=== PATIENT | male | born 1990 | race Caucasian/White ===

== ENCOUNTER 2017-09-22 03:34 | Emergency (ER) | payer OTHER, SELFPAY ==
[2017-09-22] MEDS ORDERED: ALBUTEROL 2.5 MG/3 ML NEB SOL ONE (05:01)
[2017-09-22] MEDS ORDERED: ASPIRIN EC 81 MG TAB PO ONE (05:01)
[2017-09-22] MEDS ORDERED: NA CHLORIDE 0.9% 1,000 ML ONE (05:01)
[2017-09-22] MEDS ORDERED: KETOROLAC 30 MG/ML INJ ONE (05:01)
[2017-09-22 05:20] LABS: Absolute Monocytes 2.4 K/uL (0.1-1.3); Basophils % 0.2 % (0-1.3); Monocytes % 10.5 % (3.3-12.3)
[2017-09-22 05:27] LABS: Absolute Neutrophil 18.8 K/uL (1.8-8.0); Hematocrit 43.6 % (39.6-49.0); Lymphocytes % 8.5 % (15.3-44.8); MCH 28.9 pg (27.0-35.0); MCV 83.9 fL (80-100); MPV 7.8 fL (7.6-11.3); RBC Red Blood Cell Count 5.19 M/uL (4.33-5.43)
[2017-09-22 05:31] LABS: Protime INR 1.21
[2017-09-22 05:44] LABS: Albumin 4.2 g/dL (3.2-5.5); Bilirubin Direct 0.2 mg/dL (0-0.2); Bilirubin Total 0.9 mg/dL (0.3-1.2); Magnesium 1.8 mg/dL (1.8-2.5); Protein, Total 7.2 g/dL (6.0-8.3)
[2017-09-22 05:49] LABS: CKMB Creatine Kinase MB 0.8 ng/ml (0.3-4.0)
[2017-09-22] MEDS ORDERED: Levofloxacin 750mg IV 750 MG/150 ML BAG IV ONE (06:00)
--- NOTE | 2017-09-22 06:38 | EKG ---
Test Date: 2017-09-22 Test Time: 04:51:58 Director Occupational: MEASUREMENT RESULTS: Intervals: Rate: 104 MI: 128 QRSD: 88 QT: 336 QTc: 441 [place]: P: 56 MI: 128 QRS: 59 T: 20 INTERPRETIVE STATEMENTS: Sinus tachycardia Otherwise normal ECG No previous ECG available for comparison Electronically Signed On 09-22-17 06:37:51 CDT by Reinaldo Faria
[2017-09-22 06:40] LABS: Blood Morphology Comment NOT SEEN (NOT SEEN); Platelet Estimate ADEQ
[2017-09-22 06:55] LABS: Urine Blood NEGATIVE (NEG); Urine Glucose NEGATIVE (NEG); Urine Protein NEGATIVE (NEG)
--- NOTE | 2017-09-22 07:22 | RAD REPORT ---
EXAM DESCRIPTION: CT - Chest For Pe Angio - 09/22/2017 7:00 am CLINICAL HISTORY: Chest pain. Chest pain;Cough COMPARISON: Chest Single View dated 09/22/2017 TECHNIQUE: CT angiogram of the pulmonary arteries was performed with MIP. All CT scans are performed using dose optimization technique as appropriate and may include automated exposure control or mA/KV adjustment according to patient size. FINDINGS: No evidence of pulmonary thromboembolism. No acute aortic finding demonstrated. Moderate subsegmental atelectasis is seen in both lung bases posteriorly. No significant pericardial or pleural fluid. No concerning bony finding. Fatty liver. IMPRESSION: No evidence of pulmonary thromboembolism. Moderate subsegmental atelectasis in both lung bases.
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
--- NOTE | 2017-09-22 07:38 | EDPHYS ---
Physician Documentation [facility] Name: Semaj Mccormick III Age: 27 yrs Sex: Male : 1990 Arrival Date: 09/22/2017 Time: 03:37 Bed 6 Private MD: ED Physician Alejandro Quinones HPI: 09/22 04:40 This 27 yrs old Male presents to ER via Ambulatory with complaints of Chest mike Tightness, Chest Pain. 04:40 The patient or guardian reports chest pain that is located primarily in the substernal mike area, anterior chest wall, bilaterally. The pain does not radiate. Associated signs and symptoms: The patient has no apparent associated signs or symptoms. The chest pain is described as squeezing. Duration: The patient or guardian reports multiple episodes, that are intermittent. Modifying factors: The symptoms are alleviated by nothing. the symptoms are aggravated by deep breath. Severity of pain: At its worst the pain was mild in the emergency department the pain is unchanged. The patient has not experienced similar symptoms in the past. Historical: - Allergies: 03:53 No Known Allergies; rv - Home Meds: 03:53 None [Active]; rv - PMHx: 03:53 None; rv - PSHx: 03:53 laser eye surgery; rv - Immunization history:: Adult Immunizations up to date. - Social history:: Smoking status: unknown. - Ebola Screening: : Patient negative for fever greater than or equal to 101.5 degrees Fahrenheit, and additional compatible Ebola Virus Disease symptoms Patient denies exposure to infectious person Patient denies travel to an Ebola-affected area in the 21 days before illness onset. - Family history:: not pertinent. ROS: 04:40 Constitutional: Negative for fever, chills, and weight loss, Eyes: Negative for injury, mike pain, redness, and discharge, ENT: Negative for injury, pain, and discharge, Neck: Negative for injury, pain, and swelling, Abdomen/GI: Negative for abdominal pain, nausea, vomiting, diarrhea, and constipation, Back: Negative for injury and pain, : Negative for injury, bleeding, discharge, and swelling, MS/Extremity: Negative for injury and deformity, Skin: Negative for injury, rash, and discoloration, Neuro: Negative for headache, weakness, numbness, tingling, and seizure, Psych: Negative for depression, anxiety, suicide ideation, homicidal ideation, and hallucinations, Allergy/Immunology: Negative for hives, rash, and allergies, Endocrine: Negative for neck swelling, polydipsia, polyuria, polyphagia, and marked weight changes, Hematologic/Lymphatic: Negative for swollen nodes, abnormal bleeding, and unusual bruising. 04:40 Cardiovascular: Positive for chest pain. 04:40 Respiratory: Positive for cough, dyspnea on exertion, shortness of breath, at rest. Exam: 04:40 Constitutional: This is a well developed, well nourished patient who is awake, alert, mike and in no acute distress. Head/Face: Normocephalic, atraumatic. Eyes: Pupils equal round and reactive to light, extra-ocular motions intact. Lids and lashes normal. Conjunctiva and sclera are non-icteric and not injected. Cornea within normal limits. Periorbital areas with no swelling, redness, or edema. ENT: Nares patent. No nasal discharge, no septal abnormalities noted. Tympanic membranes are normal and external auditory canals are clear. Oropharynx with no redness, swelling, or masses, exudates, or evidence of obstruction, uvula midline. Mucous membranes moist. Neck: Trachea midline, no thyromegaly or masses palpated, and no cervical lymphadenopathy. Supple, full range of motion without nuchal rigidity, or vertebral point tenderness. No Meningismus. Chest/axilla: Normal chest wall appearance and motion. Nontender with no deformity. No lesions are appreciated. Cardiovascular: Regular rate and rhythm with a normal S1 and S2. No gallops, murmurs, or rubs. Normal PMI, no JVD. No pulse deficits. Respiratory: Lungs have equal breath sounds bilaterally, clear to auscultation and percussion. No rales, rhonchi or wheezes noted. No increased work of breathing, no retractions or nasal flaring. Abdomen/GI: Soft, non-tender, with normal bowel sounds. No distension or tympany. No guarding or rebound. No evidence of tenderness throughout. Back: No spinal tenderness. No costovertebral tenderness. Full range of motion. Male : Normal genitalia with no discharge or lesions. Skin: Warm, dry with normal turgor. Normal color with no rashes, no lesions, and no evidence of cellulitis. MS/ Extremity: Pulses equal, no cyanosis. Neurovascular intact. Full, normal range of motion. Neuro: Awake and alert, GCS 15, oriented to person, place, time, and situation. Cranial nerves II-XII grossly intact. Motor strength 5/5 in all extremities. Sensory grossly intact. Cerebellar exam normal. Normal gait. Psych: Awake, alert, with orientation to person, place and time. Behavior, mood, and affect are within normal limits. 04:43 Musculoskeletal/extremity: DVT Exam: No signs of deep vein thrombosis. no pain, no mike swelling, no tenderness, negative Homans' sign noted on exam, no appreciated bluish discoloration, no erythema, no increased warmth. Vital Signs: 03:53 BP 131 / 80; Pulse 112; Resp 99; Temp 99; Pulse Ox 98% on R/A; Weight 111.13 kg (R); rv 05:32 BP 127 / 80; Pulse 113; Resp 16; Pulse Ox 99% on R/A; rv 06:30 BP 121 / 73; Pulse 98; Resp 16; Pulse Ox 93% on R/A; rv 07:30 BP 126 / 78; Pulse 94; Resp 20; Pulse Ox 99% on R/A; ph 08:44 BP 129 / 72; Pulse 94; Resp 18; Temp 98.0; Pulse Ox 99% on R/A; ph MDM: 03:59 Patient medically screened. [facility] 04:43 Data reviewed: vital signs, nurses notes, lab test result(s), EKG, radiologic studies, [facility] plain films. 09/22 04:40 Order name: Basic Metabolic Panel; Complete Time: 06:35 [facility] 09/22 04:40 Order name: BNP; Complete Time: 06:35 [facility] 09/22 04:40 Order name: CBC with Diff; Complete Time: 07:35 [facility] 09/22 04:40 Order name: Ckmb; Complete Time: 06:35 [facility] 09/22 04:40 Order name: CPK; Complete Time: 06:35 [facility] 09/22 04:40 Order name: LFT's; Complete Time: 06:35 [facility] 09/22 04:40 Order name: Magnesium; Complete Time: 06:35 [facility] 09/22 04:40 Order name: PT-INR; Complete Time: 05:46 [facility] 09/22 04:40 Order name: Ptt, Activated; Complete Time: 05:46 [facility] 09/22 04:40 Order name: Troponin (emerg Dept Use Only); Complete Time: 05:46 [facility] 09/22 04:40 Order name: D-Dimer; Complete Time: 05:46 [facility] 09/22 05:46 Order name: Manual Differential; Complete Time: 07:35 EDMS 09/22 05:47 Order name: Blood Culture Adult (2) [facility] 09/22 06:52 Order name: Urine Dipstick--Ancillary (enter results); Complete Time: 07:35 eb 09/22 04:40 Order name: XRAY Chest (1 view) [facility] 09/22 04:40 Order name: EKG; Complete Time: 04:41 [facility] 09/22 04:40 Order name: Cardiac monitoring; Complete Time: 05:31 [facility] 09/22 04:40 Order name: EKG - Nurse/Tech; Complete Time: 04:55 [facility] 09/22 04:40 Order name: IV Saline Lock; Complete Time: 05:31 [facility] 09/22 04:40 Order name: Labs collected and sent; Complete Time: 05:31 [facility] 09/22 04:40 Order name: O2 Per Protocol; Complete Time: 05:31 [facility] 09/22 04:40 Order name: O2 Sat Monitoring; Complete Time: 05:31 [facility] 09/22 04:40 Order name: Urine Dipstick-Ancillary (obtain specimen); Complete Time: 06:52 [facility] 09/22 05:47 Order name: CT Chest For PE Angio; Complete Time: 07:35 [facility] 09/22 07:35 Order name: INCENTIVE SPIROMETRY mike Administered Medications: 05:00 Drug: NS 0.9% 1000 ml Route: IV; Rate: 1 bolus; Site: right antecubital; rv 05:39 Follow up: Response: No adverse reaction rv 08:40 Follow up: Response: No adverse reaction; IV Status: Completed infusion ph 05:00 Drug: Albuterol - atroVENT (3:1) (2.5 mg - 0.5 mg) 3 ml Route: Nebulizer; rv 05:39 Follow up: Response: No adverse reaction rv 05:00 Drug: TORadol 30 mg Route: IVP; Site: right antecubital; rv 05:39 Follow up: Response: No adverse reaction; Pain is decreased rv 05:00 Drug: Aspirin 81 mg Route: PO; rv 05:39 Follow up: Response: No adverse reaction rv 06:27 Drug: levofloxacin 750 mg Volume: 150 ml; Route: IVPB; Infused Over: 90 mins; Site: rv right antecubital; 08:40 Follow up: Response: No adverse reaction; IV Status: Completed infusion ph Disposition: 09/22/17 07:38 Discharged to Home. Impression: Chest pain on breathing, Elevated white blood cell count, Dyspnea. - Condition is Stable. - Discharge Instructions: Nonspecific Chest Pain, Chest Wall Pain, Pleurisy, Nonspecific Chest Pain, [id number], Aspirin and Your Heart, Pleurisy, [id number], Pleurodynia. - Prescriptions for Ibuprofen 600 mg Oral Tablet - take 1 tablet by ORAL route every 8 hours As needed take with food; 21 tablet. Levaquin 750 mg Oral Tablet - take 1 tablet by ORAL route once daily for 7 days; 6 tablet. Pepcid 20 mg Oral Tablet - take 1 tablet by ORAL route every 12 hours for 10 days; 20 tablet. Albuterol Sulfate 90 mcg/actuation - inhale 1-2 puff by INHALATION route every 4-6 hours; 1 Inhaler. - Medication Reconciliation Form, Thank You Letter, Antibiotic Education, Prescription Opioid Use, Work release form form. - Follow up: Private Physician; When: 2 - 3 days; Reason: Recheck today's complaints, Continuance of care, Re-evaluation by your physician. Follow up: Bennett Gallegos; When: 2 - 3 days; Reason: Recheck today's complaints, Continuance of care, Re-evaluation by your physician. - Problem is new. - Symptoms have improved. Signatures: Dispatcher [employer] EDMS Alejandro Quinones MD MD cha Hall, Patricia, RN RN Dat Goldman RN RN rv Corrections: (The following items were deleted from the chart) 08:41 07:38 09/22/2017 07:38 Discharged to Home. Impression: Chest pain on breathing; ph Elevated white blood cell count; Dyspnea. Condition is Stable. Discharge Instructions: Nonspecific Chest Pain, Chest Wall Pain, Nonspecific Chest Pain, Papu-xb-Axol, Aspirin and Your Heart, Pleurodynia. Prescriptions for Ibuprofen 600 mg Oral Tablet - take 1 tablet by ORAL route every 8 hours As needed take with food; 21 tablet, Levaquin 750 mg Oral Tablet - take 1 tablet by ORAL route once daily for 7 days; 6 tablet, Pepcid 20 mg Oral Tablet - take 1 tablet by ORAL route every 12 hours for 10 days; 20 tablet. and Forms are Medication Reconciliation Form, Thank You Letter, Antibiotic Education, Prescription Opioid Use. Follow up: Private Physician; When: 2 - 3 days; Reason: Recheck today's complaints, Continuance of care, Re-evaluation by your physician. Follow up: Bennett Gallegos; When: 2 - 3 days; Reason: Recheck today's complaints, Continuance of care, Re-evaluation by your physician. Problem is new. Symptoms have improved. mike
--- NOTE | 2017-09-22 11:30 | RAD REPORT ---
EXAM DESCRIPTION: RAD - Chest Single View - 09/22/2017 5:01 am CLINICAL HISTORY: Cough;Chest pain Chest pain. COMPARISON: Chest For Pe Angio dated 09/22/2017 FINDINGS: Portable technique limits examination quality. Linear subsegmental atelectasis is present in both lung bases, greater on the left. The lungs are oth erwise clear. The heart is normal in size. No displaced fractures. IMPRESSION: Bibasilar subsegmental atelectasis.
== END 2017-09-22 08:41 | disposition home or self-care (01) ==
LOC: ER 03:34
DX: D72.829 Elevated white blood cell count, unspecified (principal); R06.00 Dyspnea, unspecified
CPT/HCPCS: 36415; 71045; 71275; 80048; 80076; 81003; 82550; 82553; 83735; 83880; 84484; 85025; 85379; 85610; 85730; 87040; 93005; 94640; 96361; 96365; 96366; 96375; 99285; J7030; Q9967

== ENCOUNTER 2018-09-16 10:49 | Emergency (ER) | payer SELFPAY ==
[2018-09-16] MEDS ORDERED: IBUPROFEN 400 MG TAB ONE (11:25)
--- NOTE | 2018-09-16 12:22 | EDPHYS ---
Physician Documentation [facility] Name: Semaj Mccormick III Age: 28 yrs Sex: Male : 1990 Arrival Date: 09/16/2018 Time: 10:55 Bed 13 Private MD: ED Physician Alejandro Quinones HPI: 09/16 11:05 This 28 yrs old Male presents to ER via Ambulatory with complaints of Sore jmm Throat. 11:05 The patient presents with sore throat. Onset: The symptoms/episode began/occurred jmm gradually, 1 day(s) ago. Associated signs and symptoms: Pertinent positives: chills, fever, Pertinent negatives cough, shortness of breath, vomiting. Patient complains of sore throat, denies cough, denies vomiting, denies shortness of breath. Historical: - Allergies: 11:00 No Known Allergies; hj - Home Meds: 11:00 None [Active]; hj - PMHx: 11:00 None; hj - PSHx: 11:00 None; hj - Immunization history:: Adult Immunizations up to date. - Social history:: Smoking status: Patient/guardian denies using tobacco, Patient uses alcohol. - Ebola Screening: : Patient negative for fever greater than or equal to 101.5 degrees Fahrenheit, and additional compatible Ebola Virus Disease symptoms Patient denies exposure to infectious person Patient denies travel to an Ebola-affected area in the 21 days before illness onset. ROS: 11:05 Cardiovascular: Negative for chest pain, palpitations, and edema, Respiratory: Negative jmm for shortness of breath, cough, wheezing, and pleuritic chest pain, Abdomen/GI: Negative for abdominal pain, nausea, vomiting, diarrhea, and constipation, Neuro: Negative for headache, weakness, numbness, tingling, and seizure. 11:05 Constitutional: Positive for chills, fever. 11:05 ENT: Positive for sore throat. 11:05 All other systems are negative. Exam: 11:05 Constitutional: This is a well developed, well nourished patient who is awake, alert, jmm and in no acute distress. Head/Face: atraumatic. Eyes: EOMI, no conjunctival erythema appreciated 11:05 Chest/axilla: Normal chest wall appearance and motion. 11:05 Abdomen/GI: Non distended, soft Back: Normal ROM Skin: General appearance color normal MS/ Extremity: Moves all extremities, no obvious deformities appreciated, no edema noted to the lower extremities Neuro: Awake and alert, normal gait Psych: Behavior is normal, Mood is normal, Patient is cooperative and pleasant 11:05 ENT: Posterior pharynx: Airway: normal, Uvula: midline, erythema, that is moderate, exudate, that is moderate. 11:05 Cardiovascular: Rate: tachycardic, Rhythm: regular. 11:05 Respiratory: the patient does not display signs of respiratory distress, Respirations: normal, Breath sounds: are clear throughout. Vital Signs: 11:00 BP 134 / 84; Pulse 135; Resp 16; Temp 99.8(O); Pulse Ox 96% on R/A; Weight 111.13 kg; hj Height 6 ft. 2 in. (187.96 cm); Pain 4/10; 12:17 BP 112 / 72; Pulse 116; Resp 18; Temp 99.0(O); Pulse Ox 95% on R/A; Pain 4/10; rb1 13:01 BP 104 / 69; Pulse 112; Resp 17; Temp 98.9(O); Pulse Ox 97% on R/A; Pain 2/10; rb1 11:00 Body Mass Index 31.46 (111.13 kg, 187.96 cm) [facility]: 11:10 Patient medically screened. [facility] 12:20 Data reviewed: vital signs, nurses notes. Counseling: I had a detailed discussion with doroteo the patient and/or guardian regarding: the historical points, exam findings, and any diagnostic results supporting the discharge/admit diagnosis, lab results, the need for outpatient follow up, to return to the emergency department if symptoms worsen or persist or if there are any questions or concerns that arise at home. ED course: Patient is alert and non toxic in appearance in the ED. Patient is advised to follow up with pcp and otherwise given strict return precautions. Patient understood and agrees with the plan of care. . 09/16 11:05 Order name: Strep; Complete Time: 11:49 sangeeta 09/16 11:11 Order name: Flu; Complete Time: 11:47 rb1 Administered Medications: 11:11 Drug: Motrin 800 mg Route: PO; rb1 12:18 Follow up: Response: No adverse reaction; Pain is decreased; T 99.0 rb1 12:40 Drug: Dexamethasone 10 mg Route: IM; Site: right deltoid; rb1 13:00 Follow up: Response: No adverse reaction rb1 Disposition: 09/16/18 12:21 Discharged to Home. Impression: Streptococcal pharyngitis. - Condition is Stable. - Discharge Instructions: Strep Throat. - Prescriptions for Amoxicillin 875 mg Oral Tablet - take 1 tablet by ORAL route every 12 hours for 10 days; 20 tablet. - Medication Reconciliation Form, Thank You Letter, Antibiotic Education, Prescription Opioid Use, Work release form form. - Follow up: Private Physician; When: 2 - 3 days; Reason: Recheck today's complaints, Continuance of care, Re-evaluation by your physician. Addendum: 09/22/2018 12:38 Co-signature as Attending Physician, Alejandro Quinones MD I agree with the assessment and c eaton plan of care. Signatures: Dispatcher [employer] EDAlejandro De La Cruz MD MD cha Mickail, Joel, PA PA jmm Joaquin, Henry, RN RN Beryl Whitfield RN RN rb1 Corrections: (The following items were deleted from the chart) 09/16 13:03 12:21 09/16/2018 12:21 Discharged to Home. Impression: Streptococcal pharyngitis. rb1 Condition is Stable. Forms are Medication Reconciliation Form, Thank You Letter, Antibiotic Education, Prescription Opioid Use. Follow up: Private Physician; When: 2 - 3 days; Reason: Recheck today's complaints, Continuance of care, Re-evaluation by your physician. doroteo
--- NOTE | 2018-09-16 12:22 | ER ---
Nurse's Notes [facility] Name: Semaj Mccormick III Age: 28 yrs Sex: Male : 1990 Arrival Date: 09/16/2018 Time: 10:55 Bed 13 Private MD: Diagnosis: Streptococcal pharyngitis Presentation: 09/16 10:58 Presenting complaint: Patient states: last night, i started having sore throat and i hj have white spots on my throat; reports fever; took kelle seltzer and cola dn flu OTC meds;. Transition of care: patient was not received from another setting of care. Onset of symptoms was September 16, 2018. Risk Assessment: Do you want to hurt yourself or someone else? Patient reports no desire to harm self or others. Initial Sepsis Screen: Does the patient meet any 2 criteria? No. Patient's initial sepsis screen is negative. Does the patient have a suspected source of infection? No. Patient's initial sepsis screen is negative. Care prior to arrival: None. 10:58 Method Of Arrival: Ambulatory 10:58 Acuity: TIANNA 4 hj Historical: - Allergies: 11:00 No Known Allergies; hj - Home Meds: 11:00 None [Active]; hj - PMHx: 11:00 None; hj - PSHx: 11:00 None; hj - Immunization history:: Adult Immunizations up to date. - Social history:: Smoking status: Patient/guardian denies using tobacco, Patient uses alcohol. - Ebola Screening: : Patient negative for fever greater than or equal to 101.5 degrees Fahrenheit, and additional compatible Ebola Virus Disease symptoms Patient denies exposure to infectious person Patient denies travel to an Ebola-affected area in the 21 days before illness onset. Screenin:05 Abuse screen: Denies threats or abuse. Nutritional screening: No deficits noted. rb1 Tuberculosis screening: No symptoms or risk factors identified. Fall Risk None identified. Assessment: 11:05 General: Appears uncomfortable, Behavior is calm, cooperative, Reports fever for. Pain: rb1 Complains of pain in throat Pain currently is 7 out of 10 on a pain scale. Pain began 1 day ago. Neuro: Level of Consciousness is awake, alert, obeys commands, Oriented to person, place, time, situation. Cardiovascular: Capillary refill < 3 seconds is brisk in bilateral fingers. Respiratory: Airway is patent Respiratory effort is even, unlabored, Respiratory pattern is regular, symmetrical. : No signs and/or symptoms were reported regarding the genitourinary system. EENT: Throat is reddened. Derm: Skin is pink, warm \T\ dry. 11:05 Respiratory: Reports cough that is. rb1 12:05 Reassessment: Patient appears in no apparent distress at this time. No changes from [facility] previously documented assessment. 12:44 Reassessment: Discharge pending due to shot time. rb1 13:01 Reassessment: Patient appears in no apparent distress at this time. Patient and/or rb1 family updated on plan of care and expected duration. Pain level reassessed. Patient is alert, oriented x 3, equal unlabored respirations, skin warm/dry/pink. No adverse reactions noted at this time. Vital Signs: 11:00 BP 134 / 84; Pulse 135; Resp 16; Temp 99.8(O); Pulse Ox 96% on R/A; Weight 111.13 kg; hj Height 6 ft. 2 in. (187.96 cm); Pain 4/10; 12:17 BP 112 / 72; Pulse 116; Resp 18; Temp 99.0(O); Pulse Ox 95% on R/A; Pain 4/10; rb1 13:01 BP 104 / 69; Pulse 112; Resp 17; Temp 98.9(O); Pulse Ox 97% on R/A; Pain 2/10; rb1 11:00 Body Mass Index 31.46 (111.13 kg, 187.96 cm) ED Course: 10:55 Patient arrived in ED. mr 10:59 John Trotter PA is PHCP. jmm 10:59 Alejandro Quinones MD is Attending Physician. [facility] 10:59 Triage completed. hj 11:02 Arm band placed on left wrist. hj 11:04 Beryl Rodriguez, RN is Primary Nurse. rb1 11:05 Patient has correct armband on for positive identification. Bed in low position. Call rb1 light in reach. Side rails up X 1. Pulse ox on. NIBP on. 11:23 Flu Sent. rb1 11:23 Strep Sent. rb1 13:02 No provider procedures requiring assistance completed. Patient did not have IV access rb1 during this emergency room visit. Administered Medications: 11:11 Drug: Motrin 800 mg Route: PO; rb1 12:18 Follow up: Response: No adverse reaction; Pain is decreased; T 99.0 rb1 12:40 Drug: Dexamethasone 10 mg Route: IM; Site: right deltoid; rb1 13:00 Follow up: Response: No adverse reaction rb1 Intake: Outcome: 12:21 Discharge ordered by . doroteo 13:02 Discharged to home ambulatory. rb1 13:02 Condition: stable 13:02 Discharge instructions given to patient, Instructed on discharge instructions, follow up and referral plans. medication usage, Demonstrated understanding of instructions, follow-up care, medications, Prescriptions given X 1. 13:03 Patient left the ED. rb1 Signatures: John Trotter PA PA jmm SandhuNya mr Nik Mccray, RN RN Beryl Whitfield, AMANDA RN rb1 Corrections: (The following items were deleted from the chart) 11:02 11:00 BP 134 / 84; Pulse 135bpm; Resp 16bpm; Pulse Ox 96% RA; Temp 98.8F Oral; 111.13 hj kg; Height 6 ft. 2 in.; BMI: 31.4; Pain 4/10; hj
[2018-09-16] MEDS ORDERED: DEXAMETHASONE 10 MG/ML VIAL ONE (12:52)
== END 2018-09-16 13:03 | disposition home or self-care (01) ==
LOC: ER 10:49
DX: J02.0 Streptococcal pharyngitis (principal)
CPT/HCPCS: 87081; 87804; 96372; 99284; J1100

== ENCOUNTER 2020-09-07 09:47 | Emergency (ER) | payer OTHER, SELFPAY ==
--- OUTSIDE RECORDS SUMMARY | 2020-09-07 09:49 | XMS REPORT | Continuity of Care Document ---
:1990 Author Organization [facility] t Address [address] [place] [address] Care Team Providers Name Role Phone Lab, Fam Pob I Attending Clinician Unavailable Doctor Unassigned, Name Attending Clinician Unavailable Problems This patient has no known problems. Allergies, Adverse Reactions, Alerts This patient has no known allergies or adverse reactions. Medications This patient has no known medications. Procedures This patient has no known procedures. Encounters Start End Encounter Admission Attending Care Care Encounter Source Date/Time Date/Time Type Type Clinicians Facility Department ID 2020-09-06 2020-09-06 Laboratory Lab, [facility] [id number] 11:35:09 11:55:09 Only Fam Pob I Health [id number] [place] [id number] Professio [phone] nal [address] 2020-04-06 2020-04-06 Laboratory Lab, [facility] [id number] 14:46:20 15:06:20 Only Fam Pob I Health [id number] [place] [id number] Professio [phone] nal 0[address] 2020-04-06 2020-04-06 Letter Doctor MCCORD [id number] 00:00:00 00:00:00 (Out) UnassignedLEVI [id number] [place] [facility] [phone] 044 Results This patient has no known results.
--- NOTE | 2020-09-07 10:10 | ER ---
Nurse's Notes [facility] Name: Semaj Mccormick III Age: 30 yrs Sex: Male : 1990 Arrival Date: 09/07/2020 Time: 09:50 Bed 14 Private MD: Diagnosis: Acute pharyngitis Presentation: 09/07 09:57 Chief complaint: Patient states: Sore throat/painful swallowing since yesterday, denies ph fever, N/V, COVID test yesterday negative. Coronavirus screen: Client denies travel out of the [place] in the last 14 days. Ebola Screen: No symptoms or risks identified at this time. Initial Sepsis Screen: Does the patient meet any 2 criteria? No. Patient's initial sepsis screen is negative. Does the patient have a suspected source of infection? No. Patient's initial sepsis screen is negative. Risk Assessment: Do you want to hurt yourself or someone else? Patient reports no desire to harm self or others. Onset of symptoms was September 07, 2020. 09:57 Method Of Arrival: Ambulatory 09:57 Acuity: TIANNA 4 ph Historical: - Allergies: 10:00 No Known Allergies; ph - PMHx: 10:00 None; ph - Immunization history:: Adult Immunizations up to date. - Social history:: Smoking status: . Screenin:29 Abuse screen: Denies threats or abuse. Denies injuries from another. Nutritional kg screening: No deficits noted. Tuberculosis screening: No symptoms or risk factors identified. Fall Risk None identified. No fall in past 12 months (0 pts). No secondary diagnosis (0 pts). No IV (0 pts). Ambulatory Aid- None/Bed Rest/Nurse Assist (0 pts). Gait- Normal/Bed Rest/Wheelchair (0 pts) Mental Status- Oriented to own ability (0 pts). Total Lowery Fall Scale indicates No Risk (0-24 pts). Assessment: 10:27 General: Appears in no apparent distress. Behavior is calm, cooperative, appropriate kg for age, quiet. Pain: Complains of pain in neck Pain does not radiate. Pain currently is 6 out of 10 on a pain scale. at worst was 10 out of 10 on a pain scale. level that patient reports is acceptable is 3 out of 10 on a pain scale. Quality of pain is described as burning, aching. Neuro: Level of Consciousness is awake, alert, obeys commands, Oriented to person, place, time, situation, Appropriate for age. Cardiovascular: No deficits noted. Heart tones S1 S2. Respiratory: No deficits noted. Airway is patent Respiratory effort is even, unlabored, relaxed, Breath sounds are clear bilaterally. GI: No deficits noted. : No deficits noted. EENT: Throat is reddened has enlarged tonsils bilaterally. Derm: No deficits noted. Musculoskeletal: No deficits noted. Vital Signs: 09:57 BP 132 / 83; Pulse 108; Resp 18; Temp 99.0(O); Pulse Ox 99% on R/A; Weight 116.57 kg; ph Height 6 ft. 2 in. (187.96 cm); 10:10 BP 129 / 83; Pulse 82; Resp 20; Pulse Ox 98% on R/A; kg 09:57 Body Mass Index 33.00 (116.57 kg, 187.96 cm) ph ED Course: 09:50 Patient arrived in ED. ds1 09:52 Emmanuel Leon MD is Attending Physician. tw4 10:00 Triage completed. ph 10:00 Arm band placed on Patient placed in an exam room, on a stretcher. ph 10:12 Mela Wilcox is Primary Nurse. kg 10:29 No provider procedures requiring assistance completed. Patient did not have IV access kg during this emergency room visit. 10:30 Patient has correct armband on for positive identification. Call light in reach. Side kg rails up X 1. Administered Medications: 10:26 Drug: Bicillin L-A (penicillin G Benzathine) 2.4 million units Route: IM; Site: left kg gluteus; 10:30 Follow up: Response: No adverse reaction kg Outcome: 10:09 Discharge ordered by . tw4 10:30 Discharged to home kg 10:30 Discharged to home ambulatory. 10:30 Condition: good 10:30 Discharge instructions given to patient. 10:31 Patient left the ED. kg Signatures: Kristen Paris ds1 Tanja Cox, RN RN Emmanuel Leon MD MD tw4 Mela Wilcox kg
--- NOTE | 2020-09-07 10:10 | EDPHYS ---
Physician Documentation [facility] Name: Semaj Mccormick III Age: 30 yrs Sex: Male : 1990 Arrival Date: 09/07/2020 Time: 09:50 Bed 14 Private MD: ED Physician Emmanuel Leon HPI: 09/07 10:28 This 30 yrs old Male presents to ER via Ambulatory with complaints of Sore tw4 Throat. 10:28 The patient presents with sore throat. The patient describes throat pain as constant, tw4 dry, raw. Onset: The symptoms/episode began/occurred yesterday. Severity of symptoms: At their worst the symptoms were moderate, in the emergency department the symptoms are unchanged. Modifying factors: The symptoms are alleviated by nothing, the symptoms are aggravated by nothing. Associated signs and symptoms: The patient has no apparent associated signs or symptoms. The patient has not experienced similar symptoms in the past. Historical: - Allergies: 10:00 No Known Allergies; ph - PMHx: 10:00 None; ph - Immunization history:: Adult Immunizations up to date. - Social history:: Smoking status: . ROS: 10:28 Constitutional: Negative for fever, chills, and weight loss, Cardiovascular: Negative tw4 for chest pain, palpitations, and edema, Respiratory: Negative for shortness of breath, cough, wheezing, and pleuritic chest pain, Abdomen/GI: Negative for abdominal pain, nausea, vomiting, diarrhea, and constipation, Back: Negative for injury and pain, MS/Extremity: Negative for injury and deformity, Skin: Negative for injury, rash, and discoloration, Neuro: Negative for headache, weakness, numbness, tingling, and seizure. 10:28 ENT: Positive for sore throat. Exam: 10:28 Constitutional: This is a well developed, well nourished patient who is awake, alert, tw4 and in no acute distress. Head/Face: Normocephalic, atraumatic. Chest/axilla: Normal chest wall appearance and motion. Nontender with no deformity. No lesions are appreciated. Cardiovascular: Regular rate and rhythm with a normal S1 and S2. No gallops, murmurs, or rubs. Normal PMI, no JVD. No pulse deficits. Respiratory: Lungs have equal breath sounds bilaterally, clear to auscultation and percussion. No rales, rhonchi or wheezes noted. No increased work of breathing, no retractions or nasal flaring. Abdomen/GI: Soft, non-tender, with normal bowel sounds. No distension or tympany. No guarding or rebound. No evidence of tenderness throughout. Back: No spinal tenderness. No costovertebral tenderness. Full range of motion. MS/ Extremity: Pulses equal, no cyanosis. Neurovascular intact. Full, normal range of motion. Neuro: Awake and alert, GCS 15, oriented to person, place, time, and situation. Cranial nerves II-XII grossly intact. Motor strength 5/5 in all extremities. Sensory grossly intact. Cerebellar exam normal. Normal gait. 10:28 ENT: Posterior pharynx: erythema, that is moderate. Vital Signs: 09:57 BP 132 / 83; Pulse 108; Resp 18; Temp 99.0(O); Pulse Ox 99% on R/A; Weight 116.57 kg; ph Height 6 ft. 2 in. (187.96 cm); 10:10 BP 129 / 83; Pulse 82; Resp 20; Pulse Ox 98% on R/A; kg 09:57 Body Mass Index 33.00 (116.57 kg, 187.96 cm) ph MDM: 09:52 Patient medically screened. tw4 10:28 Data reviewed: vital signs, nurses notes. Data interpreted: Pulse oximetry: tw4 Interpretation: normal. Counseling: I had a detailed discussion with the patient and/or guardian regarding: the historical points, exam findings, and any diagnostic results supporting the discharge/admit diagnosis. Administered Medications: 10:26 Drug: Bicillin L-A (penicillin G Benzathine) 2.4 million units Route: IM; Site: left kg gluteus; 10:30 Follow up: Response: No adverse reaction kg Disposition: 09/07/20 10:09 Discharged to Home. Impression: Acute pharyngitis. - Condition is Stable. - Discharge Instructions: Pharyngitis. - Prescriptions for Ibuprofen 800 mg Oral Tablet - take 1 tablet by ORAL route every 8 hours As needed take with food; 30 tablet. - Medication Reconciliation Form, Thank You Letter, Antibiotic Education, Prescription Opioid Use form. - Follow up: Private Physician; When: Upon discharge from the Emergency Department; Reason: Recheck today's complaints, Continuance of care, Re-evaluation by your physician. - Problem is new. - Symptoms have improved. Signatures: Tanja Cox RN RN Emmanuel Greer MD MD tw4 Mela Wilcox kg Corrections: (The following items were deleted from the chart) 10:31 10:09 09/07/2020 10:09 Discharged to Home. Impression: Acute pharyngitis. Condition is kg Stable. Forms are Medication Reconciliation Form, Thank You Letter, Antibiotic Education, Prescription Opioid Use. Follow up: Private Physician; When: Upon discharge from the Emergency Department; Reason: Recheck today's complaints, Continuance of care, Re-evaluation by your physician. Problem is new. Symptoms have improved. tw4
[2020-09-07] MEDS ORDERED: PEN G BENZ LA 2.4 MU/4 ML SYRINGE IM ONE (10:35)
[2020-09-07 10:37] VITALS: TEMP 99
[2020-09-07 10:38] VITALS: BP 129/83; O2SAT 98
== END 2020-09-07 10:31 | disposition home or self-care (01) ==
LOC: ER 09:47
DX: J02.9 Acute pharyngitis, unspecified (principal)
CPT/HCPCS: 96372; 99283; J0561

== ENCOUNTER 2020-12-03 19:36 | Emergency (ER) | payer OTHER ==
--- OUTSIDE RECORDS SUMMARY | 2020-12-03 19:39 | XMS REPORT | Continuity of Care Document ---
:1990 Author Organization [facility] t Address [address] [place] [address] Care Team Providers Name Role Phone Lab, [...] Facility Department ID 2020-09-06 2020-09-06 Laboratory Lab, [facility] [id number] 11:35:09 11:55:09 Only Fam Pob I Health [id number] [place] [id number] Professio [phone] nal [address] 2020-04-06 2020-04-06 Laboratory Lab, [facility] [id number] 14:46:20 15:06:20 Only Fam Pob I Health [id number] [place] [id number] Professio [phone] nal 0[address] 2020-04-06 2020-04-06 Letter Doctor MCCORD [id number] 00:00:00 00:00:00 (Out) UnassignedLEVI [id number] [place] [facility] [id number] [phone] 044 Results This patient has no known results.
[2020-12-03] MEDS ORDERED: ACETAMINOPHEN 500 MG TAB ONE (21:07)
--- NOTE | 2020-12-03 22:08 | RAD REPORT ---
EXAM DESCRIPTION: RAD - Chest Single View - 12/03/2020 9:19 pm CLINICAL HISTORY: SOB Chest pain. COMPARISON: Chest Single View dated 09/22/2017 FINDINGS: Portable technique limits examination quality. The lungs are grossly clear. The heart is normal in size. No displaced fractures. IMPRESSION: No acute intrathoracic process suspected.
[2020-12-03 22:56] LABS: Absolute Lymphocytes (CBC) 0.9 K/uL (0.7-4.9); Basophils % 0.4 % (0-1.3); Hematocrit 48.2 % (39.6-49.0); Lymphocytes % 12.2 % (15.3-44.8)
[2020-12-03 23:17] LABS: BUN Blood Urea Nitrogen 12 mg/dL (7-18); Bicarbonate 25 mmol/L (21-32); Glucose Level 132 mg/dL (74-106); Potassium 3.8 mmol/L (3.5-5.1); Sodium Level 137 mmol/L (136-145); Troponin (Emerg Dept Use Only) < 0.02 ng/mL (0.0-0.045)
[2020-12-04] MEDS ORDERED: NA CHLORIDE 0.9% 1,000 ML ONE (00:11)
--- NOTE | 2020-12-04 01:04 | ER ---
Nurse's Notes [facility] Name: Semaj Mccormick III Age: 30 yrs Sex: Male : 1990 Arrival Date: 12/03/2020 Time: 19:37 Bed Waiting Private MD: Diagnosis: Pneumonia due to SARS-associated coronavirus;Dehydration Presentation: 12/03 20:38 Chief complaint: Patient states: fever,chills, increased heart rate, Hr is running iw between 110-120, gets SOB on exertion. Coronavirus screen: Client presents with at least one sign or symptom that may indicate coronavirus-19. Ebola Screen: Patient negative for fever greater than or equal to 101.5 degrees Fahrenheit, and additional compatible Ebola Virus Disease symptoms Patient denies exposure to infectious person. Patient denies travel to an Ebola-affected area in the 21 days before illness onset. No symptoms or risks identified at this time. Risk Assessment: Do you want to hurt yourself or someone else? Patient reports no desire to harm self or others. 20:38 Method Of Arrival: Ambulatory iw 20:38 Acuity: TIANNA 3 iw 20:40 Initial Sepsis Screen: Does the patient meet any 2 criteria? No. Patient's initial iw sepsis screen is negative. Does the patient have a suspected source of infection? No. Patient's initial sepsis screen is negative. Onset of symptoms was November 29, 2020. Historical: - Allergies: 20:41 No Known Allergies; iw - Home Meds: 20:41 None [Active]; iw - PMHx: 20:41 None; iw - PSHx: 20:41 None; iw - Immunization history:: Client reports having NOT received the Covid vaccine. - Social history:: Smoking status: Patient/guardian denies using tobacco, Stopped _ months ago 6. Assessment: 12/04 01:24 Reassessment: pt seen by this RN at discharge. Pt is A\T\O x 4, resp unlabored, pt bb verbalized understanding of and agrees to plan of care discharge instructions given pt ambulated with steady gait to exit. Vital Signs: 12/03 20:40 BP 127 / 83; Pulse 125; Resp 18 S; Temp 101.3(TE); Pulse Ox 100% on R/A; Weight 117.93 iw kg; Height 6 ft. 2 in. (187.96 cm); 12/04 01:16 BP 117 / 69; Pulse 101; Resp 18; Temp 100; Pulse Ox 99% on R/A; da3 12/03 20:40 Body Mass Index 33.38 (117.93 kg, 187.96 cm) ED Course: 12/03 19:37 Patient arrived in ED. cf2 20:39 Triage completed. iw 20:41 Arm band placed on. iw 21:19 CXR XRAY In Process Unspecified. EDMS 22:19 Jose Juan Dyer NP is PHCP. pm1 22:19 Genaro Jara MD is Attending Physician. pm1 22:30 Inserted saline lock: 22 gauge in right antecubital area, using aseptic technique. ds4 Blood collected. 12/04 00:22 CT Chest For PE Angio In Process Unspecified. EDMS 01:25 No provider procedures requiring assistance completed. IV discontinued, intact, bb bleeding controlled, No redness/swelling at site. Pressure dressing applied. Patient maintains SpO2 saturation greater than 95% on room air. Administered Medications: 12/03 20:47 Drug: Tylenol 1000 mg Route: PO; iw 12/04 01:26 Follow up: Response: No adverse reaction bb 12/03 23:51 Drug: NS 0.9% 1000 ml Route: IV; Rate: 1000 ml; Site: right antecubital; bb 12/04 00:50 Follow up: IV Status: Completed infusion; IV Intake: 1000ml bb Intake: 00:50 IV: 1000ml; Total: 1000ml. bb Outcome: 01:03 Discharge ordered by . pm1 01:26 Discharged to home ambulatory. bb 01:26 Condition: stable 01:26 Discharge instructions given to patient, Instructed on discharge instructions, follow up and referral plans. Demonstrated understanding of instructions, follow-up care. 01:26 Patient left the ED. bb Signatures: Dispatcher [employer] EDMS Layne Piña RN RN bb Carole Mason RN RN iw Josh Elder ds4 Jose Juan Dyer NP TRAFFIC RECORDER pm1 Jose Francisco Lyons cf2 Shukri Villalta RN RN da3
--- NOTE | 2020-12-04 01:04 | EDPHYS ---
Physician Documentation [facility] Name: Semaj Mccormick III Age: 30 yrs Sex: Male : 1990 Arrival Date: 12/03/2020 Time: 19:37 Bed Waiting Private MD: ED Physician Genaro Jara HPI: 12/03 22:39 This 30 yrs old Male presents to ER via Ambulatory with complaints of Fever, pm1 Chest Pain, CHILLS. 22:39 The patient or guardian reports cough, Chest pain. Onset: The symptoms/episode pm1 began/occurred 3 day(s) ago. Severity of symptoms: in the emergency department the symptoms are actually worse. Modifying factors: The symptoms are alleviated by nothing, the symptoms are aggravated by exertion, Dyspnea on exertion. Associated signs and symptoms: Pertinent positives: chest pain, fever, Pertinent negatives: diarrhea, nausea, sore throat, vomiting. The patient has not experienced similar symptoms in the past. The patient has not recently seen a physician. Patient presents to the ER with complaints of fever, chills, cough, chest pain and dyspnea on exertion. Onset of symptoms on Saturday and worsening today. Patient reports elevated heart rate in the 120s. Reports decreased p.o. intake. Historical: - Allergies: 20:41 No Known Allergies; iw - Home Meds: 20:41 None [Active]; iw - PMHx: 20:41 None; iw - PSHx: 20:41 None; iw - Immunization history:: Client reports having NOT received the Covid vaccine. - Social history:: Smoking status: Patient/guardian denies using tobacco, Stopped _ months ago 6. ROS: 22:39 Eyes: Negative for injury, pain, redness, and discharge, ENT: Negative for injury, pm1 pain, and discharge. 22:39 Abdomen/GI: Negative for abdominal pain, nausea, vomiting, diarrhea, and constipation, Back: Negative for injury and pain, MS/Extremity: Negative for injury and deformity, Skin: Negative for injury, rash, and discoloration, Neuro: Negative for headache, weakness, numbness, tingling, and seizure. 22:39 Constitutional: Positive for chills, fever, poor PO intake. 22:39 Cardiovascular: Positive for chest pain, palpitations. 22:39 Respiratory: Positive for cough, shortness of breath, on exertion. 22:39 All other systems are negative. Exam: 22:39 Constitutional: This is a well developed, well nourished patient who is awake, alert, pm1 and in no acute distress. Head/Face: Normocephalic, atraumatic. 22:39 Back: No spinal tenderness. No costovertebral tenderness. Full range of motion. Skin: Warm, dry with normal turgor. Normal color with no rashes, no lesions, and no evidence of cellulitis. MS/ Extremity: Pulses equal, no cyanosis. Neurovascular intact. Full, normal range of motion. 22:39 Eyes: Exam is negative for acute changes, Extraocular movements: no acute changes, Conjunctiva: no acute changes, no injection. 22:39 ENT: Exam is negative for acute changes, Mouth: Lips: normal, Oral mucosa: normal, pink and intact, moist. 22:39 Cardiovascular: Rate: tachycardic, Rhythm: regular, Pulses: no pulse deficits are appreciated, Heart sounds: normal, normal S1and S2, Edema: is not appreciated. 22:39 Respiratory: Exam negative for acute changes, respiratory distress, shortness of breath, Breath sounds: are clear throughout. 22:39 Abdomen/GI: Inspection: abdomen appears normal, Palpation: abdomen is soft and non-tender, in all quadrants. 22:39 Neuro: Orientation: is normal, Mentation: is normal, Motor: is normal, moves all fours, Gait: is steady, at a normal pace, without difficulty. Vital Signs: 20:40 BP 127 / 83; Pulse 125; Resp 18 S; Temp 101.3(TE); Pulse Ox 100% on R/A; Weight 117.93 iw kg; Height 6 ft. 2 in. (187.96 cm); 12/04 01:16 BP 117 / 69; Pulse 101; Resp 18; Temp 100; Pulse Ox 99% on R/A; da3 12/03 20:40 Body Mass Index 33.38 (117.93 kg, 187.96 cm) iw MDM: 12/03 22:39 Data interpreted: Pulse oximetry: on room air is 100 %. Interpretation: normal. pm1 22:39 ED course: Patient with elevated heart rate without fever. Will evaluate patient pm1 further with labs and CT chest. 22:41 Patient medically screened. pm1 23:01 Data reviewed: vital signs. pm1 12/04 01:02 Counseling: I had a detailed discussion with the patient and/or guardian regarding: the pm1 historical points, exam findings, and any diagnostic results supporting the discharge/admit diagnosis, lab results, radiology results, the need for outpatient follow up, to return to the emergency department if symptoms worsen or persist or if there are any questions or concerns that arise at home. 12/03 20:42 Order name: COVID-19 : Document "Date of Symptom Onset" if Symptomatic. 12/03 22:10 Order name: SARS-COV-2 RT PCR; Complete Time: 22:16 EDMS 12/03 22:39 Order name: CBC with Diff; Complete Time: 23:03 pm1 12/03 22:39 Order name: BMP; Complete Time: 23:20 pm1 12/03 22:40 Order name: Troponin (emerg Dept Use Only); Complete Time: 23:20 pm1 12/03 20:42 Order name: CXR XRAY; Complete Time: 22:16 iw 12/03 22:39 Order name: CT Chest For PE Angio pm1 12/03 22:39 Order name: IV Saline Lock; Complete Time: 23:37 pm1 12/03 22:39 Order name: Vital Signs pm1 12/03 22:40 Order name: EKG; Complete Time: 22:41 pm1 12/03 22:40 Order name: EKG - Nurse/Tech; Complete Time: 23:37 pm1 Administered Medications: 12/03 20:47 Drug: Tylenol 1000 mg Route: PO; 12/04 01:26 Follow up: Response: No adverse reaction 12/03 23:51 Drug: NS 0.9% 1000 ml Route: IV; Rate: 1000 ml; Site: right antecubital; bb 12/04 00:50 Follow up: IV Status: Completed infusion; IV Intake: 1000ml Disposition: 07:06 Co-signature as Attending Physician, Genaro Jara MD. [email or web address] Disposition Summary: 12/04/20 01:03 Discharge Ordered Location: Home pm1 Problem: new pm1 Symptoms: have improved pm1 Condition: Stable pm1 Diagnosis - Pneumonia due to SARS-associated coronavirus pm1 - Dehydration pm1 Followup: pm1 - With: Emergency Department - When: As needed - Reason: Worsening of condition Followup: pm1 - With: Private Physician - When: 2 - 3 days - Reason: Recheck today's complaints, Continuance of care, Re-evaluation by your physician Discharge Instructions: - Discharge Summary Sheet pm1 - Dehydration, Adult pm1 - Rehydration, Adult pm1 - COVID-19 pm1 Forms: - Medication Reconciliation Form pm1 - Work release form pm1 - Thank You Letter pm1 - Antibiotic Education pm1 - Prescription Opioid Use pm1 Signatures: Dispatcher [employer] EDMS Layne Piña RN RN Carole Cabrera RN RN iw Jose Juan Dyer NP FOOD SERVICE DIRECTOR pm1 Genaro Jara MD MD [email or web address] Corrections: (The following items were deleted from the chart) 12/03 20:57 20:43 CORONAVIRUS ordered. [facility] EDND
[2020-12-04 01:34] VITALS: BP 117/69; TEMP 100; O2SAT 99
--- NOTE | 2020-12-05 10:43 | RAD REPORT ---
EXAM DESCRIPTION: CT - Chest For Pe Angio - 12/04/2020 7:02 am CLINICAL HISTORY: SOB;Chest pain. COMPARISON: CTA chest from September 22, 2017. TECHNIQUE: CTA of the chest was performed following intravenous administration of iodinated contrast . Axial soft tissue and lung window, and coronal and sagittal soft tissue window reconstructions were created and sent to PACS. 3D postprocessing was performed on an independent workstation, with images sent to PACS for subsequen t review. This exam was performed according to our departmental dose-optimization program, which includes autom ated exposure control, adjustment of the mA and/or kV according to patient size and/or use of iterati ve reconstruction technique. FINDINGS: Vascular: Nondiagnostic evaluation of the distal pulmonary arteries due to prominent strea k artifact from patient motion and SVC contrast bolus. The main pulmonary trunk, and right and left m ain pulmonary arteries are also mildly degraded by streak artifact, with no obvious acute pulmonary e mbolism. Dilated main pulmonary trunk, measuring up to 3.8 cm in diameter, similar to prior. No evide nce of aortic aneurysm or dissection. Lungs and pleura: Mild motion degradation. Small consolidation along the posterior medial pleura of t he right lower lobe. Diffuse mild mosaic attenuation throughout the lungs. No pleural effusion. No pn eumothorax. Mediastinum and neck: Mild mediastinal lymphadenopathy. Unremarkable appearance of the thyroid gland. Cardiac: No cardiomegaly or pericardial effusion. Abdomen: Diffuse hepatic steatosis. Musculoskeletal: No concerning osseous abnormality. IMPRESSION: 1. Nondiagnostic evaluation of the distal pulmonary arteries due to streak artifact. N o obvious central acute pulmonary embolism. 2. Small consolidation along the posterior medial pleura of the right lower lobe, concerning for pn eumonia. 3. Diffuse mild mosaic attenuation throughout the lungs, which can be seen with pulmonary edema or chronic small vessel/small airways disease. 4. Mild mediastinal lymphadenopathy, likely reactive. 5. Unchanged dilatation of the main pulmonary trunk, which can be seen with pulmonary arterial hype rtension. 6. Diffuse hepatic steatosis. Electronically signed by: Kellen Rubin MD 12/04/2020 12:37 AM CDT Due to temporary technical issues with the PACS/Fluency reporting system, reports are being signed by the in house radiologist without review as a courtesy to ensure prompt reporting. The interpreting r adiologist is fully responsible for the content of the report.
== END 2020-12-04 01:26 | disposition home or self-care (01) ==
LOC: ER 19:36
DX: U07.1 COVID-19 (principal); J12.82 Pneumonia due to coronavirus disease 2019; E86.0 Dehydration
CPT/HCPCS: 93005; 85025; 80048; 36415; 84484; 71275; 71045; 96360; 99284; U0003; Q9967

== ENCOUNTER 2025-01-13 20:41 | Emergency (ER) | payer BC, SELFPAY ==
--- OUTSIDE RECORDS SUMMARY | 2025-01-13 20:47 | XMS REPORT | Continuity of Care Document ---
Author Name Unknown Address [address] [facility]. [address] [place] [address] [facility] Address [address] [facility] [address] [place] [address] Care Team Providers Care Museum Service Scheduler Name Role Phone LIONEL PHAM Primary Care Physician Hanna monique RADIOLOGY Attending Clinician Unavailable Radiology Attending Clinician Unavailable Doctor Unassigned, Gu [place] Attending Clinician U navailable Lab, Adc Fam Pob I Attending Clinician Unavailab le Unknown, Attending Attending Clinician Unavailab le Ayana Richardson Attending Clinician AYANA LINN Attending Clinician Unavailable LIONEL PHAM Admitting Clinician Unavailab le Payers Payer Name Policy Type Policy Number Effective Date Expirati on Date Source [employer] [id number] 2021 00:00:00 Problems Condition Name Condition Details Condition Category Status Onset Date Resolution Date Last Treatment Date Treating Clinician Comments Source [id number] S/P vasectomy Problem [facility] [id number] Scrotal hematoma Problem [facility] Allergies, Adverse Reactions, Alerts Allergy Name Allergy Type Status Severity Reaction(s) Onset Date Inactive Date Treating Clinician Comments Source NO KNOWN ALLERGIE S Drug Class Active [facility] Social History Social Habit Start Date Stop Date Quantity Comments Source History of Tobacco Use [facility] Sex Assigned At [facility] Smoking Status Start Date Stop Date Source Tobacco smoking consumption unknown [facility] Former Smoker 2022-10-17 00:00:00 2022-10-17 00:00:00 [facility] Medications Ordered Medication Name Filled Medication Name Start Date Stop Date Current Medication? Ordering Clinician Indication Dosage Frequency Signature (SIG) Comments Components Source Sulfamethox azole-Trime thoprim 800-160 MG Sulfamethox azole-Trime thoprim 800-160 MG 2023-0 10-17 00:00: 00 No 1{table t} BID Sulfametho xazole-Tri methoprim 800-160 MG Sulfamethox azole-Trime thoprim 800-160 MG Sulfamethox azole-Trime thoprim 800-160 MG 3-0 10-17 00:00: 00 No 1{table t} BID Sulfametho xazole-Tri methoprim 800-160 MG Sulfamethox azole-Trime thoprim 800-160 MG Sulfamethox azole-Trime thoprim 800-160 MG 3-0 10-17 00:00: 00 No 1{table t} BID Sulfametho xazole-Tri methoprim 800-160 MG Sulfamethox azole-Trime thoprim 800-160 MG Sulfamethox azole-Trime thoprim 800-160 MG 2023-0 10-17 00:00: 00 No 1{table t} BID Sulfametho xazole-Tri methoprim 800-160 MG Acetaminoph en-Codeine 300-30 MG Acetaminoph en-Codeine 300-30 MG 2023-0 10-12 00:00: 00 No 1{table t_as_ne eded} QID Acetaminop hen-Codein e 300-30 MG Acetaminoph en-Codeine 300-30 MG Acetaminoph en-Codeine 300-30 MG 2023-0 7 00:00: 00 No 1{table t_as_ne eded} QID Acetaminop hen-Codein e 300-30 MG Acetaminoph en-Codeine 300-30 MG Acetaminoph en-Codeine 300-30 MG 2023-0 7 00:00: 00 No 1{table t_as_ne eded} QID Acetaminop hen-Codein e 300-30 MG Acetaminoph en-Codeine 300-30 MG Acetaminoph en-Codeine 300-30 MG 10-12 00:00: 00 No 1{table t_as_ne eded} QID Acetaminop hen-Codein e 300-30 MG Vital Signs Vital Name Observation Time Observation Value Comments Curtis shrestha height 2022-10-17 14:45:00 72 [in_i] Commo n [facility] weight 2022-10-17 14:45:00 276 [lb_av] Comm on [facility] temperature 2022-10-17 14:45:00 98.6 [degF] Com [facility] bmi 2022-10-17 14:45:00 37.43 kg/m2 Comm on [facility] height 2022-10-12 10:00:00 72 [in_i] Commo n [facility] weight 2022-10-12 10:00:00 276 [lb_av] Comm on [facility] temperature 2022-10-12 10:00:00 98.6 [degF] Com [facility] bmi 2022-10-12 10:00:00 37.43 kg/m2 Comm on [facility] oximetry 2022-10-12 10:00:00 99 % Commo n [facility] respiratory rate 2022-10-12 10:00:00 18 /min [facility] blood pressure systolic 2022-10-12 10:00:00 140 mm[Hg] [facility] blood pressure diastolic 2022-10-12 10:00:00 72 mm[Hg] [facility] height 2022-08-14 15:00:00 72 [in_i] Commo n [facility] weight 2022-08-14 15:00:00 277 [lb_av] Comm on [facility] temperature 2022-08-14 15:00:00 97.7 [degF] Com [facility] bmi 2022-08-14 15:00:00 37.56 kg/m2 Comm on [facility] oximetry 2022-08-14 15:00:00 99 % Commo n [facility] respiratory rate 2022-08-14 15:00:00 18 /min [facility] blood pressure systolic 2022-08-14 15:00:00 130 mm[Hg] [facility] blood pressure diastolic 2022-08-14 15:00:00 84 mm[Hg] [facility] Procedures Procedure Date / Time Performed Performing Clinicia n Source ASSIGNMENT OF BENEFITS 2022-05-17 19:56:43 Docto r Unassigned, Gu [place] [facility] Encounters Start Date/Time End Date/Time Encounter Type Admission Type Attending [facility] Facility Care Department Encounter ID Source 2022-08-14 15:04:01 Outpatient [facility] [id number] [facility] 2022-12-13 00:00:00 2022-12-13 00:00:00 OFFICE VISIT ESTAB PT LEVEL 3 [facility] [id number] [facility] 2022-10-17 00:00:00 2022-10-17 00:00:00 Postop visit [facility] [id number] [facility] 2022-10-12 00:00:00 2022-10-12 00:00:00 (PROC) Procedure [facility] [id number] [facility] 2022-08-14 00:00:00 2022-08-14 00:00:00 OFFICE VISIT NEW PT LEVEL 2 [facility] [id number] [facility] 2022-05-17 13:58:59 2022-05-17 23:59:00 Outpatient R RADIOLOGY [facility] [id number] [facility] 2022-05-17 13:58:59 2022-05-17 23:59:00 Hospital Encounter Radiology [facility] [id number] [facility] 2022-05-17 00:00:00 2022-05-17 00:00:00 Orders Only Doctor Unassigned, Gu [place] [facility] [id number] [facility] 2020-09-06 11:35:09 2020-09-06 11:55:09 Laboratory Only Lab, Adc Fam Pob I [facility] [id number] 2020-09-06 11:35:09 2020-09-06 11:55:09 Laboratory Only Lab, Adc Fam Pob I Unknown, Attending [facility] [id number] [id number] [facility] 2020-09-06 11:40:00 2020-09-06 11:40:00 Outpatient R [facility] [id number] [facility] 2020-04-06 14:46:20 2020-04-06 15:06:20 Laboratory Only Lab, Adc Fam Pob I [facility] [id number] [id number] 2020-04-06 14:46:20 2020-04-06 15:06:20 Laboratory Only Lab, Adc Fam Pob I Ayana Linn [facility] [id number] [facility] 2020-04-06 15:00:00 2020-04-06 15:00:00 Outpatient R AYANA LINN [facility] [id number] [facility] 2020-04-06 00:00:00 2020-04-06 00:00:00 Letter (Out) Doctor Unassigned, Gu [place] [facility] [id number] [id number] 2020-04-06 00:00:00 2020-04-06 00:00:00 Letter (Out) Doctor Unassigned, Gu [place] [facility] [id number] [id number] [facility]
[2025-01-13] MEDS ORDERED: NA CHLORIDE 0.9% 1,000 ML ONE (21:04)
[2025-01-13 21:19] LABS: Hematocrit 42.6 % (39.6-49.0); Hemoglobin 14.3 g/dL (13.6-17.9); MCH 28.6 pg (27.0-35.0); MCHC 33.7 g/dL (32.0-36.0); MCV 84.8 fL (80-100); MPV 7.5 fL (7.6-11.3); RBC Red Blood Cell Count 5.02 M/uL (4.33-5.43); White Blood Count 15.90 thou/uL (4.3-10.9)
[2025-01-13 21:36] LABS: Anion Gap 9.7 mEq/L (5.0-15.0); BUN Blood Urea Nitrogen 21.0 mg/dL (7-18); Glucose Level 104.0 mg/dL (74-106); Potassium 3.7 mEq/L (3.5-5.1)
[2025-01-13] MEDS ORDERED: D5 0.9 NS 1,000 ML IV ONE (21:40)
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
[2025-01-14 00:39] VITALS: BP 128/83; O2SAT 98
== END 2025-01-13 23:20 | disposition home or self-care (01) ==
LOC: ER 20:44
DX: T67.5XXA Heat exhaustion, unspecified, initial encounter (principal)
CPT/HCPCS: 96361; 80048; 36415; 82550; 85027; 96360; 99284; J7042; J7030